=== PATIENT | male | born 1940 | race Caucasian/White ===

== ENCOUNTER 2019-07-30 08:54 | Inpatient (IN) | payer MEDICARE, BC, MEDICAID ==
[~2019-07-30] VITALS: Ht 175.3 cm; Wt 89.7 kg
[2019-07-30] VITALS (148 sets, daily range): BP systolic 148–172; BP diastolic 72–77; PULSE 57–61; TEMP 99.2–100.7; O2SAT 93–100
[~2019-07-30 08:54] MED LIST: ALEVE 220MG220 MG PO; ARICEPT10 MG PO; ASPI325T6 PO; BACTRIM DS 8001 TAB PO; CELEXA 20MG20 MG/TAB PO; CEPHALEXIN500 M1 PO; COLACE 100100 MG/CAP PO; DEBROX OT; DENTIVA1 LOZ MM; DEPAKOTE 125MG125 M1 PO; DEPAKOTE 125MG125 MG PO; DEPAKOTE 250MG250 MG PO; DEPAKOTE500 MG PO; DYAZIDE 25 MG-31 CAP PO; IBU800 M1 PO; IMODIUM A-D2 MG PO; K-TAB10 PO; KEPPRA 500MG500 MG PO; KEPPRA750 MG PO; LEXAPRO 10MG10 MG PO; MILK OF MA400 MG/52 PO; MIRALAX PA17 GM/Dose PO; MOBIC15 MG PO; MUCUS RELIEF400 M1 PO; MUCUSRELF400T PO; NAMENDA 10MG TA10 MG PO; NORCO 325 MG-51 TAB PO; NORVASC 10MG10 MG PO; NORVASC 5MG5 MG/TAB PO; PERIDEX (CHLOR480 ML MM; PRILOSEC 20MG20 MG PO; PRINIVIL40 MG PO; SINEMET 25/101 UDTAB PO; TEGRETOL 2200 MG/TA1 PO; TYLENOL 325MG325 MG PO; ZOFRAN 4MG T4 MG/TAB PO; ZYRTEC 10MG10 MG PO
[2019-07-30 09:35] LABS: BASO % 0.2 % (0.0-2.0); EOS % 0.3 % (0-4.0); GRAN # 5.6 (1.4-6.5); HEMATOCRIT 45.5 % (42.0-52.0); HEMOGLOBIN 14.8 g/dl (13.5-18.0); LYMPH # 0.5 (1.2-3.4); LYMPH % 8.2 % (20.0-51.0); MEAN CELL VOLUME 103 fl (80.0-100.0); MEAN CORPUSCULAR HEMOGLOBIN 33 pg (27.0-31.0); MEAN CORPUSCULAR HGB CONC 33 g/dl (33.0-37.0); MONO # 0.3 (0.1-0.6); MONO % 4.8 % (1.7-9.3); PLATELET COUNT 134 K/mm3 (130-400); RED BLOOD COUNT 4.43 M/mm3 (4.20-5.60); REDCELL DISTRIBUTION WIDTH-CV 14.2 % (11.5-14.5)
[2019-07-30 09:38] LABS: ARTERIAL BLD GAS O2 SATURATION 94.9 % (92-100); ARTERIAL BLD GAS TCO2 CT 27.2; ARTERIAL BLOOD GAS BASE EXCESS 1.9 (-2-2); ARTERIAL BLOOD GAS PO2 73.5 mmHg (80-100); ARTERIAL BLOOD GAS pH 7.44 (7.35-7.45)
[2019-07-30 09:45] LABS: ALANINE AMINOTRANSFERASE 8 U/L (21-72); ALBUMIN 3.9 gm/dL (3.5-5.0); ALKALINE PHOSPHATASE 54 U/L (50-136); ANION GAP 9 mmol/L (7-16); AST,SGOT 9 U/L (15-37); BILIRUBIN,TOTAL 0.8 mg/dL (0.0-1.0); BLOOD UREA NITROGEN 21 mg/dL (9-20); CALCIUM 9.2 mg/dL (8.4-10.2); CARBON DIOXIDE 29 mmol/L (22-30); CHLORIDE 107 mmol/L (98-107); CREATINE KINASE 29 U/L (55-170); CREATININE, serum 0.78 (0.66-1.25); GLUCOSE 132 mg/dL (74-106); MAGNESIUM 1.9 mg/dL (1.6-2.3); POTASSIUM 4.7 mmol/L (3.4-5.0); SODIUM 144 mmol/L (137-145); TOTAL PROTEIN 6.6 gm/dL (6.4-8.2)
[2019-07-30 09:46] LABS: C-REACTIVE PROTEIN < 0.5 mg/dL (0.0-0.9); INR 1.2 (0.8-3.0); PROTHROMBIN TIME 13.7 SECONDS (9.7-12.8)
[2019-07-30 09:49] LABS: PARTIAL THROMBOPLASTIN TIME 29.2 SECONDS (26.0-37.0)
[2019-07-30 09:54] LABS: TROPONIN-I < 0.012 ng/mL (0.000-0.035)
[2019-07-30 10:06] LABS: VALPROIC ACID (DEPAKENE) 62.8 ug/mL (50.0-100.0)
[2019-07-30 10:38] LABS: COLLECTION METHOD CATHETER
[2019-07-30 10:50] LABS: MUCOUS Present /lpf; PH 7 (5-8); SQUAMOUS EPITHELIAL 0-2 /hpf; URINE APPEARANCE Hazy; URINE BACTERIA None Seen /hpf; URINE BILIRUBIN Negative (NEGATIVE); URINE BLOOD 2+ (NEGATIVE); URINE COLOR Amber; URINE GLUCOSE Negative (NEGATIVE); URINE KETONE 1+ (NEGATIVE); URINE LEUKOCYTE ESTERASE Negative (NEGATIVE); URINE NITRATE Negative (NEGATIVE); URINE PROTEIN(semi-quant) 1+ (NEGATIVE); URINE RBC >50 /hpf; URINE UROBILINOGEN Negative (NEGATIVE)
[2019-07-30] MEDS ORDERED: DULCOLAX S10 MG/SUPP RC (11:29)
[2019-07-30] MEDS ORDERED: DEPAKOTE 125MG125 M1 PO (11:29)
[2019-07-30] MEDS ORDERED: DEPAKOTE ER 25250 MG PO ×2 (11:30→11:31)
[2019-07-30] MEDS ORDERED: COLACE 100100 MG/CAP PO (11:31)
[2019-07-30] MEDS ORDERED: ARICEPT10 MG PO (11:32)
[2019-07-30] MEDS ORDERED: KEPPRA750 MG PO (11:32)
[2019-07-30] MEDS ORDERED: PRINIVIL40 MG PO (11:33)
[2019-07-30] MEDS ORDERED: MOBIC15 MG PO (11:35)
[2019-07-30] MEDS ORDERED: KLOR-CON SPRIN10 MEQ PO (11:36)
[2019-07-30] MEDS ORDERED: NAMENDA 10MG TA10 MG PO (11:36)
[2019-07-30] MEDS ORDERED: SINEMET 25/101 UDTAB PO (11:37)
[2019-07-30] MEDS ORDERED: DESYREL 100MG100 MG PO (11:38)
[2019-07-30] MEDS ORDERED: ZYRTEC 10MG10 MG PO (11:39)
--- NOTE | 2019-07-30 14:30 | NUR ---
Patient arrives to ICU bed 5 and is transferred to ICU monitors. Assessment and vitals as charted. Family at bedside and hospitalist service present. Orders as entered CPOE. Care assumed.
--- NOTE | 2019-07-30 17:10 | NUR ---
Dr. Green notified of consult. States he will be in.
--- NOTE | 2019-07-30 17:57 | NUR ---
Dr. Martinez notified of consult, patient history, and elevated troponin.
--- NOTE | 2019-07-30 18:28 | NUR ---
Dr. Green rounds at this time.
[2019-07-30] MEDS ORDERED: IMODIUM 2MG CAPS2 MG PO (19:00)
[2019-07-30] MEDS ORDERED: MILK OF MA400 MG/52 PO (19:02)
[2019-07-30] MEDS ORDERED: MIRALAX PA17 GM/Dose PO (19:03)
[2019-07-30] MEDS ORDERED: TYLENOL 325MG325 MG PO (19:04)
--- NOTE | 2019-07-30 19:15 | NUR ---
Received report from [facility] Lopez.
--- NOTE | 2019-07-30 20:30 | NUR ---
Patient resting quietly in bed. BP elevated at 157/72, and axillary temperature 100.7 upon assessment; other vitals within normal limits. Patient opens eyes spontaneously and follows commands and remains nonverbal. Patient does not open mouth despite cues from staff; oral medications withheld at this time. Will continue to monitor.
--- NOTE | 2019-07-30 21:30 | NUR ---
Marisa notified of patient's persistent high blood pressures. Received orders for PRN hydralazine.
[2019-07-31] VITALS (588 sets, daily range): BP systolic 131–159; BP diastolic 69–86; PULSE 52–82; TEMP 99–101.1; O2SAT 65–100
[2019-07-31 07:03] LABS: CALCIUM 8.8 mg/dL (8.4-10.2); CREATININE, serum 0.63 (0.66-1.25); POTASSIUM 3.7 mmol/L (3.4-5.0)
--- NOTE | 2019-07-31 07:34 | NUR ---
Report given to [facility] Bueno.
--- NOTE | 2019-07-31 08:48 | NUR ---
TOO W/ RT IN PERFORMING EEG ON PATIENT AT THIS TIME
[2019-07-31 09:02] LABS: BASO % 0.3 % (0.0-2.0); EOS % 0.1 % (0-4.0); GRAN # 5.3 (1.4-6.5); GRAN % 74.2 % (42.2-75.2); HEMATOCRIT 43.6 % (42.0-52.0); HEMOGLOBIN 14.2 g/dl (13.5-18.0); LYMPH # 1.2 (1.2-3.4); LYMPH % 16.8 % (20.0-51.0); MEAN CELL VOLUME 104 fl (80.0-100.0); MEAN CORPUSCULAR HEMOGLOBIN 34 pg (27.0-31.0); MEAN CORPUSCULAR HGB CONC 33 g/dl (33.0-37.0); MEAN PLATELET VOLUME 10.3 fl (7.4-10.4); MONO # 0.6 (0.1-0.6); MONO % 8.2 % (1.7-9.3); PLATELET COUNT 130 K/mm3 (130-400); REDCELL DISTRIBUTION WIDTH-CV 14.7 % (11.5-14.5)
--- NOTE | 2019-07-31 11:57 | NUR ---
PATIENT DISCONNECTED FROM TELE MONITOR IN PREPARATION FOR MRI
--- NOTE | 2019-07-31 12:22 | NUR ---
PT TAKEN BY CART BY GUSTAVO TO MRI
--- NOTE | 2019-07-31 12:44 | NUR ---
PT RETURNED VIA CART FROM MRI. PER HARNESSMAKER PATIENT MOVED QUITE A BIT DURING EXAM SO QUALITY MAY BE POOR.
--- NOTE | 2019-07-31 12:52 | NUR ---
Vancomycin Initial Dosing Pharmacy Note Ordering provider: MD Shiva Indication/duration: EMPIRIC, BACTEREMIA Relevant comorbidities: LABS: WBC 7.1, SCr.0.63, CrCl >60 Recommendation: vancomycin 17 mg/kg Loading dose: 1.5 grams Maintenance dose: 1.5 grams every 12 hours Trough goal: 15-20 ug/mL. Trough 08/02/19 @ 1230
--- NOTE | 2019-07-31 14:35 | NUR ---
Due to the patient's dementia, FIELD OBSERVER student contacted Ashley Coronado the patient's daughter/DPOA-HC. The patient resides in [facility]. [facility] staff assist with ADLs and he has a walker and wheelchair. The patient's PCP is Dr. Crawley and [facility] assist with medication needs. The patient has advanced directives in the EMR. FIELD OBSERVER student faxed updates to [facility]. Social serivces will continue to follow to ensure a safe discharge.
--- NOTE | 2019-07-31 14:50 | NUR ---
ATTEMPTED ORAL CARE SEVERAL TIMES, PATIENT WOULD NOT OPEN MOUTH FOR ME.
--- NOTE | 2019-07-31 15:02 | NUR ---
PT RESTING COMFORTABLY. EX- AT BEDSIDE.
[2019-08-01] VITALS (1004 sets, daily range): BP systolic 130–164; BP diastolic 67–118; PULSE 61–85; TEMP 98.2–100.6; O2SAT 77–100
--- NOTE | 2019-08-01 08:00 | NUR ---
Shift assessment complete at this time. Unable to review plan of care with patient at bedside r/t neurological condition. Vitals stable at this time. Pt appears to be pain free upon assessment with a FLACC score of 0. Bed in low position, call light within reach, will continue to monitor.
[2019-08-01 08:45] LABS: BASO % 0.1 % (0.0-2.0); GRAN # 6.7 (1.4-6.5); GRAN % 81.5 % (42.2-75.2); HEMATOCRIT 45.1 % (42.0-52.0); HEMOGLOBIN 15.4 g/dl (13.5-18.0); LYMPH # 0.8 (1.2-3.4); MEAN CORPUSCULAR HEMOGLOBIN 34 pg (27.0-31.0); MEAN CORPUSCULAR HGB CONC 34 g/dl (33.0-37.0); MEAN PLATELET VOLUME 9.6 fl (7.4-10.4); MONO # 0.7 (0.1-0.6); MONO % 8.2 % (1.7-9.3); PLATELET COUNT 116 K/mm3 (130-400); RED BLOOD COUNT 4.57 M/mm3 (4.20-5.60); REDCELL DISTRIBUTION WIDTH-CV 14.2 % (11.5-14.5)
[2019-08-01 08:46] LABS: MEAN CELL VOLUME 99 fl (80.0-100.0)
[2019-08-01 08:58] LABS: CALCIUM 8.5 mg/dL (8.4-10.2); CREATININE, serum 0.61 (0.66-1.25); POTASSIUM 3.2 mmol/L (3.4-5.0)
--- NOTE | 2019-08-01 12:00 | NUR ---
Pt resting in bed. Vitals stable at this time. FLACC score 0. Bed in low position, call light within reach, will continue to monitor.
--- NOTE | 2019-08-01 16:00 | NUR ---
Pt resting in bed. FLACC score 0. No overt signs of pain or discomfort noted. Vitals stable at this time. Bed in low position, call light within reach, will continue to monitor.
--- NOTE | 2019-08-01 19:26 | NUR ---
Bedside report given to [facility] lAmanza.
[2019-08-02] VITALS (653 sets, daily range): BP systolic 117–167; BP diastolic 68–92; PULSE 68–94; TEMP 98–99.6; O2SAT 59–100
[2019-08-02 05:59] LABS: ANION GAP 11 mmol/L (7-16); BLOOD UREA NITROGEN 11 mg/dL (9-20); CALCIUM 8.4 mg/dL (8.4-10.2); CARBON DIOXIDE 26 mmol/L (22-30); CHLORIDE 97 mmol/L (98-107); CREATININE, serum 0.53 (0.66-1.25); GLUCOSE 106 mg/dL (74-106); SODIUM 134 mmol/L (137-145)
[2019-08-02 07:02] LABS: BASO % 0.1 % (0.0-2.0); GRAN # 6.6 (1.4-6.5); HEMATOCRIT 42.3 % (42.0-52.0); HEMOGLOBIN 14.8 g/dl (13.5-18.0); LYMPH # 0.8 (1.2-3.4); LYMPH % 9.7 % (20.0-51.0); MEAN CELL VOLUME 97 fl (80.0-100.0); MEAN CORPUSCULAR HEMOGLOBIN 34 pg (27.0-31.0); MEAN CORPUSCULAR HGB CONC 35 g/dl (33.0-37.0); MEAN PLATELET VOLUME 10.2 fl (7.4-10.4); MONO # 0.6 (0.1-0.6); PLATELET COUNT 134 K/mm3 (130-400); RED BLOOD COUNT 4.35 M/mm3 (4.20-5.60); REDCELL DISTRIBUTION WIDTH-CV 14.1 % (11.5-14.5)
--- NOTE | 2019-08-02 07:05 | NUR ---
Report given to [facility] Bueno.
[2019-08-02 10:08] LABS: MAGNESIUM 1.5 mg/dL (1.6-2.3)
[2019-08-02 10:10] LABS: POTASSIUM 2.8 mmol/L (3.4-5.0)
--- NOTE | 2019-08-02 14:06 | NUR ---
Vancomycin Follow-up Pharmacy Note Current regimen: vancomycin 1.5 g q12h Vancomycin trough: 11.2 Adjustments: increase to vancomycin 1.75g q12h
[2019-08-02 15:45] LABS: ALBUMIN 3.3 gm/dL (3.5-5.0); BILIRUBIN,TOTAL 1.1 mg/dL (0.0-1.0); CALCIUM 8.4 mg/dL (8.4-10.2); CREATININE, serum 0.53 (0.66-1.25); PHOSPHOROUS 2.3 mg/dL (2.5-4.5); POTASSIUM 3.2 mmol/L (3.4-5.0); TOTAL PROTEIN 5.9 gm/dL (6.4-8.2)
[2019-08-02 15:52] LABS: PRE ALBUMIN 17.4 mg/dL (17.6-36.0)
--- NOTE | 2019-08-02 16:24 | NUR ---
INSTRUMENT ENGINEER student faxed updates to [facility]. The patient had a PICC placed this day.
--- NOTE | 2019-08-02 19:15 | NUR ---
Received report from [facility] Bueno.
[2019-08-03] VITALS (725 sets, daily range): BP systolic 112–157; BP diastolic 83–100; PULSE 61–79; TEMP 98.2–98.9; O2SAT 72–100
[2019-08-03 06:58] LABS: BASO % 0.1 % (0.0-2.0); EOS % 0.4 % (0-4.0); GRAN # 5.8 (1.4-6.5); GRAN % 79.9 % (42.2-75.2); HEMATOCRIT 41.8 % (42.0-52.0); HEMOGLOBIN 14.7 g/dl (13.5-18.0); LYMPH # 0.6 (1.2-3.4); LYMPH % 8.7 % (20.0-51.0); MEAN CELL VOLUME 97 fl (80.0-100.0); MEAN CORPUSCULAR HEMOGLOBIN 34 pg (27.0-31.0); MEAN CORPUSCULAR HGB CONC 35 g/dl (33.0-37.0); MEAN PLATELET VOLUME 9.6 fl (7.4-10.4); MONO # 0.8 (0.1-0.6); MONO % 10.5 % (1.7-9.3); PLATELET COUNT 130 K/mm3 (130-400); RED BLOOD COUNT 4.31 M/mm3 (4.20-5.60)
[2019-08-03 07:15] LABS: ALBUMIN 3.2 gm/dL (3.5-5.0); BILIRUBIN,TOTAL 0.9 mg/dL (0.0-1.0); CALCIUM 8.3 mg/dL (8.4-10.2); CREATININE, serum 0.45 (0.66-1.25); MAGNESIUM 1.9 mg/dL (1.6-2.3); PHOSPHOROUS 1.9 mg/dL (2.5-4.5); TOTAL PROTEIN 5.8 gm/dL (6.4-8.2)
[2019-08-03 07:17] LABS: POTASSIUM 2.5 mmol/L (3.4-5.0)
--- NOTE | 2019-08-03 08:10 | NUR ---
PICC intact right upper arm. With sterile technique right upper arm PICC dressing change done with insertion site cleansed with ChloraPrep 1, chlorhexidine impregnated disc applied, skin prep, StatLock, and Tegaderm applied. No signs or symptoms of IV complications noted. No concerns voiced. Arm wrapped with Fran to protect catheter. Prior to dressing change there was small amount of dried reddish drainage on disc. No further date drainage noted.
--- NOTE | 2019-08-03 15:51 | NUR ---
GARRETT faxed updates to [facility]. coordinator cardiopulmonary services will continue to follow.
[2019-08-04] VITALS (1190 sets, daily range): BP systolic 127–173; BP diastolic 87–97; PULSE 64–81; TEMP 97.8–98.6; O2SAT 31–100
[2019-08-04 05:49] LABS: BASO % 0.3 % (0.0-2.0); EOS # 0.1 (0.0-0.7); EOS % 1.8 % (0-4.0); GRAN # 5.4 (1.4-6.5); GRAN % 75.3 % (42.2-75.2); HEMATOCRIT 41.8 % (42.0-52.0); HEMOGLOBIN 14.4 g/dl (13.5-18.0); LYMPH # 0.8 (1.2-3.4); LYMPH % 11.3 % (20.0-51.0); MEAN CELL VOLUME 99 fl (80.0-100.0); MEAN CORPUSCULAR HEMOGLOBIN 34 pg (27.0-31.0); MEAN CORPUSCULAR HGB CONC 34 g/dl (33.0-37.0); MEAN PLATELET VOLUME 9.5 fl (7.4-10.4); MONO # 0.8 (0.1-0.6); PLATELET COUNT 114 K/mm3 (130-400); RED BLOOD COUNT 4.22 M/mm3 (4.20-5.60); REDCELL DISTRIBUTION WIDTH-CV 14.6 % (11.5-14.5)
[2019-08-04 05:58] LABS: CALCIUM 8.3 mg/dL (8.4-10.2); CREATININE, serum 0.55 (0.66-1.25); PHOSPHOROUS 2.3 mg/dL (2.5-4.5); POTASSIUM 3.2 mmol/L (3.4-5.0)
--- NOTE | 2019-08-04 07:50 | NUR ---
PT RESTING IN BED, NO NON-VERBAL S/S OF PAIN NOTED. VSS AT THIS TIME, PT NOTED TO NOT F/C BUT M/A/E WITHDRAWING TO PAIN, K REPLACEMENT INITIATED, AND POTASSIUM CURRENTLY HANGING. TP REPOSITIONED TO RIGHT SIDE. WILL CONTINUE TO MONITOR PT STATUS IN UPDATE PROVIDERS NEEDED.
--- NOTE | 2019-08-04 11:23 | NUR ---
HOSP- DR. RAJAN AT BEDSIDE TO DISCUSS CARE WITH PT DAUGHTER AND SON.
--- NOTE | 2019-08-04 15:12 | NUR ---
1325 NGT PLACED, AND KUB ORDERED
[2019-08-05] VITALS (758 sets, daily range): BP systolic 128–176; BP diastolic 67–98; PULSE 71–98; TEMP 98.3–98.6; O2SAT 72–100
[2019-08-05 06:28] LABS: CALCIUM 8.5 mg/dL (8.4-10.2); CREATININE, serum 0.6 (0.66-1.25); MAGNESIUM 2.1 mg/dL (1.6-2.3); PHOSPHOROUS 4.3 mg/dL (2.5-4.5); POTASSIUM 3.5 mmol/L (3.4-5.0)
--- NOTE | 2019-08-05 07:19 | NUR ---
REPORT RECEIVED FROM TANI NORWOOD
--- NOTE | 2019-08-05 09:58 | NUR ---
PT BECAME TACHYCARDIC HR 100-140. PT LYING IN BED RESTING COMFORTABLY. BP 164/92. NOTIFIED DR RAJAN OF AFIB W/ PAROXYSMAL RVR. ONE TIME DOSE METOPROFOL IV ORDERED.
--- NOTE | 2019-08-05 10:10 | NUR ---
10MG METOPROLOL SLOW IVP GIVEN FOR TACHYCARDIA. PT'S HR AFTER MEDICATION ADMINISTRATION NOW 75-81. BP 140/87.
--- NOTE | 2019-08-05 10:28 | NUR ---
PT'S SON HAS ARRIVED. SON UPDATED ON PATIENT'S STATUS OVERNIGHT AND THIS AM.
--- NOTE | 2019-08-05 11:04 | NUR ---
DR KYLE HERE TO ASSESS PATIENT. WILL ATTEMPT TO PERFORM MRI BRAIN IN AM LAST SCAN WAS UNSUCCESSFUL D/T PT'S MOVEMENT. WILL MEDICATE PRIOR TO SCAN.
--- NOTE | 2019-08-05 13:25 | NUR ---
TUBE FEED INITATED AT 10ML/HR
--- NOTE | 2019-08-05 14:04 | NUR ---
FAMILY HAS DECIDED THAT THEY DO NOT WANT PATIENT TO HAVE MRI OF BRAIN THEY FEEL IT WILL NOT CHANGE TREATMENT OR OUTCOME. FAMILY IS READY TO DISCUSS PLACING PATIENT ON HOSPICE IN AM.
--- NOTE | 2019-08-05 19:10 | NUR ---
Bedside report received from [facility] Bueno. Patient's son at the bedside.
--- NOTE | 2019-08-05 20:00 | NUR ---
Patient awake and alert at this time. Does not follow commands. Assessment complete. No changes from previous exams. Vitals remain stable. Patient is tolerating tube feed well. No further needs at this time. Will continue to monitor. Call light within reach
[2019-08-06] VITALS (473 sets, daily range): BP systolic 136–155; BP diastolic 70–103; PULSE 86–108; TEMP 97.9–99; O2SAT 85–98
--- NOTE | 2019-08-06 | NUR ---
Patient resting at this time. Patient has had 3 wet briefs this shift so far. Patient cleaned up at this time and new brief applied.
[2019-08-06 05:29] LABS: CALCIUM 8.5 mg/dL (8.4-10.2); CREATININE, serum 0.64 (0.66-1.25); MAGNESIUM 2.1 mg/dL (1.6-2.3); PHOSPHOROUS 3.4 mg/dL (2.5-4.5); POTASSIUM 3.7 mmol/L (3.4-5.0)
--- NOTE | 2019-08-06 07:25 | NUR ---
Bedside report given to [facility] Douglas. Assisted with cleaning up patient and repositioning in bed.
--- NOTE | 2019-08-06 12:51 | NUR ---
Plan: To return to [facility] ph Fx with [facility] ph for Hospice care. Assessment: Garrett met with Pascual (son)/angela . Family has decided on this process. Son reports that he would like to have transport set for tommorrow morning. GARRETT called [facility] [phone] to setup transport. Son concerned about financial liability to ems transport. GARRETT confirmed that mileage can be billed to family. Confirmed addtional cost for approx.. 342.00 which is 15.00$ per mile that insurance may decline. Educated son of this cost. GARRETT faxed both facilities for services. Action: [facility] paperwork and transfer sheets for EMS filled out. Will continue to support family and follow.
--- NOTE | 2019-08-06 14:00 | NUR ---
PT IS NOW COMFORT CARE AND GOING TO BE DISCHARGED TO HOSPICE TOMORROW AM. NG TUBE DC'D AND TPN DC'D.
--- NOTE | 2019-08-06 17:10 | NUR ---
PT APPEARS TO BE BACK IN SR. EKG ORDERED TO CONFIRM. AUSTEN PATRICK NOTIFIED.
--- NOTE | 2019-08-06 19:15 | NUR ---
Bedside report received from [facility] Douglas. Patient's family at the bedside.
--- NOTE | 2019-08-06 22:20 | NUR ---
Dr. Webb notified in person about patient's fall. No observed injuries and patient's mentation remains the same as earlier in the shift. Vitals are WNL. No additional testing is ordered at this time.
--- NOTE | 2019-08-06 22:39 | NUR ---
Called at this time by [facility] Mantilla to come to room. Upon enterance patient is on the floor. Annalee places pillow under head. Patient assessed and no wounds, bumps, or bruises found. BP and HR obtained. Called for assistance from [facility] Rahman and tool supervisor Sonal. With the use of 4 nurses, patient is positioned in a full body lift sling and lifted back to the bed. Patient repositioned for comfort. Once laying down patient begins to try to get up again and is redirected, but quickly returns to trying to get up. Ativan 1mg given IV for restlessness. Remained with patient until calmed. Bed alarm on.
--- NOTE | 2019-08-07 01:50 | NUR ---
Patient resting comfortably. He has moved position some in the bed, but is sleeping. Repositioned patient for comfort. Patient opens his eyes to voice and groans when moved. Reassessed patient to ensure no bumps or bruising have developed. None noted. Will continue to monitor. Bed alarm on.
--- NOTE | 2019-08-07 07:10 | NUR ---
Bedside report given to [facility] Sheth
[2019-08-07] MEDS ORDERED: TYLENOL SU650 MG/SUP RC (07:19)
[2019-08-07] MEDS ORDERED: ROXANOL 20MG20 MG/ML SL (07:21)
[2019-08-07] MEDS ORDERED: LORAINT PO (07:21)
[2019-08-07] MEDS ORDERED: ZOFRAN ODT4 MG PO (07:21)
--- NOTE | 2019-08-07 07:33 | NUR ---
Called and notified son, Pascual Sanchez, of patient's fall last night. Updated on patient status and the plan is to still go to [place] today. He has no further questions at this time and thanks us for our care.
--- NOTE | 2019-08-07 07:40 | NUR ---
Report received from Shantelle NORWOOD and care resumed.
--- NOTE | 2019-08-07 09:41 | NUR ---
AIVS at bedside and CHRIS PICC removed in plan to discharge to hospice. [facility] here at 0900. Report given. Pt incont of urine x 1 and was cleaned up. Pt moved to [facility] and sent for discharge to [facility] with hospice at 0915. Report called to [place] and correction. Followed up with GARRETT Griffiths to make sure discharge orders were faxed as facility had not yet received them. Stated yes and would follow up. Phone number was given to correction if further questions arrise.
--- NOTE | 2019-08-07 10:37 | NUR ---
The patient discharged today, 08/07 to [facility] with [facility]. AGRICULTURE INSTRUCTOR student contacted the patient's son Pascual via telephone to present IM form. Pascual verbalized understanding. A copy of the form was sent with the patient and original was placed in the chart. [facility] transported the patient at 0900. AGRICULTURE INSTRUCTOR student informed the family of pickle processor. AGRICULTURE INSTRUCTOR student faxed discharge orders to [facility] and [facility]. There are no additional needs at this time.
== END 2019-08-07 09:15 | disposition hospice, home (50) | DRG 101 ==
LOC: COL.ER 08:54 → ICU 12:32 → IMCU 07-31 07:30 → ICU 08-04 15:57
PROVIDERS: Emergency Medicine; Hospitalist; Nurse Practitioner Family; Physician Assistant; Psychiatry & Neurology Neurology; Student in an Organized Health Care Education/Training Program; ADMIT Family Medicine
PROC: 3E0436Z Introduction of Nutritional Substance into Central Vein, Percutaneous Approach (ICD-10-PCS; principal; 2019-08-02)
PROC: 02HV33Z Insertion of Infusion Device into Superior Vena Cava, Percutaneous Approach (ICD-10-PCS; 2019-08-02)
DX: G40.401 Other generalized epilepsy and epileptic syndromes, not intractable, with status epilepticus (principal); E46 Unspecified protein-calorie malnutrition; F32.9 Major depressive disorder, single episode, unspecified; G20 Parkinson's disease; F02.80 Dementia in other diseases classified elsewhere, unspecified severity, without behavioral disturbance, psychotic disturbance, mood disturbance, and anxiety; I65.22 Occlusion and stenosis of left carotid artery; K70.30 Alcoholic cirrhosis of liver without ascites; Z53.29 Procedure and treatment not carried out because of patient's decision for other reasons; R50.9 Fever, unspecified; Z51.5 Encounter for palliative care; E87.6 Hypokalemia; I67.1 Cerebral aneurysm, nonruptured; E83.42 Hypomagnesemia; R79.89 Other specified abnormal findings of blood chemistry; I10 Essential (primary) hypertension; Z87.891 Personal history of nicotine dependence; Z91.19 Patient's noncompliance with other medical treatment and regimen; Z68.29 Body mass index [BMI] 29.0-29.9, adult
CPT/HCPCS: 99222-AI; 99233-AI; 99239; A4216; A4217; C1751; C1892; J0360; J0610; J0696; J1650; J1953; J2060; J2543; J3370; J3475; J3480; J7030; J7040; J7050; J7131; Q9967